=== PATIENT | male | born 1990 | race Caucasian/White ===

== ENCOUNTER → 2017-06-21 | Outpatient (CLI) | payer OTHER ==
[~2017-06-21] MED LIST: TETR250C3 PO
--- NOTE | 2017-06-21 10:03 | DIAGNOSTIC IMAGING REPORT ---
THYROID ULTRASOUND CLINICAL HISTORY: Thyroid nodule. COMPARISON STUDY: None. TECHNIQUE: Sonography of the thyroid gland was performed. FINDINGS: The right thyroid lobe measures 5 x 1.7 x 1.8 cm and the left lobe measures 5.6 x 1.5 x 1.6 cm. Note is made of a 1 cm apparent hypoechoic nodule within the posterior aspect of the midpole of the right thyroid lobe. This could reflect a thyroid nodule or heterogeneous parenchyma. The isthmus measures 4 mm in thickness. No additional thyroid nodules are identified. The gland is slightly heterogeneous. IMPRESSION: 1. Possible 1 cm hypoechoic right lobe thyroid nodule. This could reflect a thyroid nodule or heterogeneous thyroid parenchyma. This does not meet criteria for biopsy. A follow-up thyroid ultrasound in one year to ensure stability is recommended. 2. Normal size, mildly heterogeneous thyroid gland. Electronically signed by: Ko Duarte M.D. 06/21/2017 10:02 AM Dictated Date/Time: 06/21/2017 9:59 AM
== END | disposition home or self-care (01) ==
LOC: C.ULTR 08:56
PROVIDERS: ATTEND Family Medicine
DX: E04.1 Nontoxic single thyroid nodule (principal)

== ENCOUNTER → 2017-07-08 | Outpatient (CLI) | payer OTHER ==
--- NOTE | 2017-07-12 10:46 | ECHOCARDIOGRAM REPORT ---
*NOTICE TO RECEIVING REPUBLICAN AGENCY This information is strictly Confidential and protected under [place] law. [place] law prohibits you from making any further disclosure of this information unless further disclosure is expressly permitted by the written consent of the person to whom it pertains or is authorized by law. A general authorization for the release of medical or other information is not sufficient for this purpose. Hospital accepts no responsibility if the information is made available to any other person, INCLUDING THE PATIENT. Interpretation Summary * Name: GENOVEVA ODEN Study Date: 07/08/2017 02:08 PM * Patient Location: [facility] HR: 71 * : 1990 (M/d/yyyy) Gender: Male Height: 68 in * Age: 27 yrs Ethnicity: CA Weight: 215 lb * Ordering Physician: Hanna Marr * Referring Physician: Hanna Marr PA-C * Performed By: Blane Corral R[facility] * * Reason For Study: CARDIAC MURMUR * BSA: 2.1 m2 * -- Conclusions -- * 1. Normal LV size. Normal LV wall thickness. * 2. Normal LV systolic function. LVEF 60-65%. No regional wall motion abnormalities. * 3. Borderline dilated RA, RV. Normal RV function. * 4. No significant valvular pathology. * 5. Doppler suggestive of possible left to right interatrial shunt. * 6. No prior study for comparison. * Consider [facility] for futher evaluation of interatrial septum. Procedure Details * A complete two-dimensional transthoracic echocardiogram was performed (2D, M-mode, Doppler and color flow Doppler). Left Ventricle * The left ventricle is grossly normal size. * There is normal left ventricular wall thickness. * Ejection Fraction = 60-65%. * No regional wall motion abnormalities noted. Right Ventricle * The right ventricle is borderline dilated. * The right ventricular systolic function is normal as assessed by tricuspid annular plane systolic excursion (TAPSE) (normal >1.5 cm). Atria * The left atrial size is normal. * Borderline right atrial enlargement. * Doppler suggests left to right interatrial shunt. Mitral Valve * The mitral valve anatomy is normal. * There is no mitral valve stenosis. * There is trace mitral regurgitation. Tricuspid Valve * The tricuspid valve anatomy is normal. * There is no tricuspid stenosis. * There is trace tricuspid regurgitation. Aortic Valve * The aortic valve opens well. * The aortic valve is trileaflet. * No hemodynamically significant valvular aortic stenosis. * There is no significant aortic regurgitation. Pulmonic Valve * The pulmonic valve is not well seen, but is grossly normal. * Pulmonic stenosis is absent. * There is no significant pulmonary regurgitation. Great Vessels * The aortic root and proximal ascending aorta are normal sized. Pericardium/Pleural * There is no pericardial effusion. MMode 2D Measurements and Calculations IVSd 1.1 cm IVSs 1.6 cm LVIDd 4.7 cm LVIDs 2.9 cm LVPWd 1.1 cm LVPWs 1.7 cm IVS/LVPW 0.97 FS 38.5 % EDV(Teich) 101.0 ml ESV(Teich) 31.5 ml EF(Teich) 68.8 % EDV(cubed) 102.0 ml ESV(cubed) 23.8 ml EF(cubed) 76.7 % % IVS thick 45.8 % % LVPW thick 49.9 % LV mass(C)d 192.7 grams LV mass(C)dI 91.4 grams/m\S\2 LV mass(C)s 180.5 grams LV mass(C)sI 85.7 grams/m\S\2 SV(Teich) 69.4 ml SI(Teich) 32.9 ml/m\S\2 SV(cubed) 78.3 ml SI(cubed) 37.1 ml/m\S\2 Ao root diam 2.9 cm Ao root area 6.5 cm\S\2 ACS 2.1 cm LA dimension 3.1 cm LA/Ao 1.1 LVOT diam 2.0 cm LVOT area 3.3 cm\S\2 EDV(sp4-el) 156.0 ml ESV(sp4-el) 58.0 ml EF(sp4-el) 62.8 % EDV(sp2-el) 138.0 ml ESV(sp2-el) 66.0 ml EF(sp2-el) 52.2 % SV(sp4-el) 98.0 ml SI(sp4-el) 46.5 ml/m\S\2 SV(sp2-el) 72.0 ml SI(sp2-el) 34.2 ml/m\S\2 Doppler Measurements and Calculations MV E max stefani 56.3 cm/sec MV A max stefani 47.7 cm/sec MV E/A 1.2 MV P1/2t max stefani 60.8 cm/sec MV P1/2t 84.5 msec MVA(P1/2t) 2.6 cm\S\2 MV dec slope 210.8 cm/sec\S\2 MV dec time 0.38 sec Ao V2 max 135.2 cm/sec Ao max PG 7.3 mmHg Ao max PG (full) 2.8 mmHg LIZZIE(V,A) 2.6 cm\S\2 LIZZIE(V,D) 2.6 cm\S\2 LV V1 max PG 4.5 mmHg LV V1 max 106.4 cm/sec PA V2 max 127.7 cm/sec PA max PG 6.5 mmHg
== END | disposition home or self-care (01) ==
LOC: C.CPL 14:00
PROVIDERS: ATTEND Physician Assistant
DX: R01.1 Cardiac murmur, unspecified (principal)